=== PATIENT | male | born 1955 | race Caucasian/White ===

== ENCOUNTER 2019-09-18 11:34 | Emergency (ER) | payer SELFPAY ==
[~2019-09-18] VITALS: Ht 165.1 cm; Wt 81.6 kg
[2019-09-18 11:48] VITALS: BP_SYST 158
[2019-09-18 12:15] VITALS: BP_SYST 148
== END 2019-09-18 12:16 | disposition home or self-care (01) ==
LOC: SED 11:34
DX: U07.1 COVID-19 (principal); R50.9 Fever, unspecified; R05 Cough
CPT/HCPCS: 99283; C9803; U0003